=== PATIENT | female | born 1965 | race Caucasian/White ===

== ENCOUNTER → 2018-11-24 11:58 | Outpatient (CLI) | payer OTHER, SELFPAY ==
--- NOTE | 2018-11-24 | DI.RAD.S_ITS ---
PROCEDURE: XR FOOT LT 2V INDICATIONS: LATERAL FOOT PAIN TECHNIQUE: 2 views of the foot were acquired. COMPARISON: None. FINDINGS: Bones: No fractures or dislocations. Severe hallux valgus deformity of with prominent bunion. No suspicious bony lesions. Soft tissues: No tibiotalar joint effusion. Achilles tendon appears normal. IMPRESSION: Severe hallux valgus deformity. Dictated by: Lauren Whitmore MD, PhD on 11/24/2018 at 14:18 Approved by: Lauren Whitmore MD, PhD on 11/24/2018 at 14:19
== END ==
PROVIDERS: Family Provider Family Medicine; PCP Family Medicine; Visit Provider Internal Medicine
DX: M20.12 Hallux valgus (acquired), left foot (principal)
CPT/HCPCS: 73620

== ENCOUNTER 2022-01-05 07:43 | Emergency (ER) | payer OTHER, SELFPAY ==
[2022-01-05] VITALS (7 sets, daily range): BP systolic 133–135; BP diastolic 70–79; PULSE 58–69; RESP 13–20; TEMP 36.4; O2SAT 98–100; BMI 21.6
--- NOTE | 2022-01-05 07:54 | DI.RAD.S_ITS ---
PROCEDURE: XR CHEST 1V INDICATIONS: chest pain TECHNIQUE: One view of the chest was acquired. COMPARISON: None. FINDINGS: Surgical changes and devices: None. Lungs and pleura: Lungs are clear. No pleural effusions or pneumothorax. Mediastinum: Mediastinal contours appear normal. Heart size is normal. Bones and chest wall: No suspicious bony lesions. Overlying soft tissues appear unremarkable. IMPRESSION: No acute cardiopulmonary pathology. Dictated by: Tom Kevin M.D. on 01/05/2022 at 8:47 Approved by: Tom Kevin M.D. on 01/05/2022 at 8:47
[2022-01-05] MEDS: KETOROLAC 30 MG/ML VIAL 15 MG IV (08:03)
--- NOTE | 2022-01-05 08:04 | ED.CHESTPAIN ---
HPI - Chest Pain General Chief Complaint: Chest Pain Stated Complaint: heartburn/chest pain Time Seen by Provider: 01/05/22 07:54 Source: patient Mode of arrival: Ambulatory Limitations: no limitations Limitations: no limitations History of Present Illness HPI narrative: The patient complains of central sternal chest pain, present for 3 days. Pain waxes and wanes, but has not resolved. The pain does not radiate. She has no headache, no neck pain, no back pain or arm pain. She has occasional nonproductive cough. She has no dyspnea, no hemoptysis. She has no fever. She denies recent illness. She has no leg pain. She works out regularly, about 90 minutes 2 times daily. Workouts have been gone well without exacerbation of the pain. She has no intolerance to the activity. She can recall no injury that may have affected her chest. She denies GI symptoms. She has no chronic cardiac or respiratory illness. She is on no prescription medications. Related Data Home Medications Medication Instructions Recorded Confirmed multivitamin (Multiple Vitamins) 1 tab PO QDAY #0 tab 06/12/16 01/05/22 aspirin 81 mg tablet,delayed 81 mg PO DAILY 01/05/22 01/05/22 release cholecalciferol (vitamin D3) 75 75 mcg PO DAILY 01/05/22 01/05/22 mcg (3,000 unit) tablet Allergies Allergy/AdvReac Type Severity Reaction Status Date / Time No Known Drug Allergies Allergy Verified 01/05/22 07:52 Review of Systems Constitutional Constitutional: Denies body ache(s), Denies chills, Denies excessive sweating, Denies fatigue, Denies fever(s) and Denies headache(s) ENT Ears, Nose, Mouth, and Throat: Denies vertigo, Denies dizziness, Denies headache(s), Denies neck pain, Denies sinus pressure and Denies sore throat Cardiovascular Cardiovascular: Reports chest pain, Reports chest pain at rest, Denies syncope, Denies rapid heart rate, Denies pedal edema, Denies lightheadedness, Denies radiating jaw, neck or arm pain and Denies dyspnea Respiratory Respiratory: Reports as per HPI, Reports cough and Denies dyspnea Gastrointestinal Gastrointestinal: Denies abdominal pain and Denies nausea Comments: Normal appetite Genitourinary Genitourinary: Denies dysuria Musculoskeletal Musculoskeletal: Denies back pain, Denies arthralgias, Denies myalgias, Denies neck pain and Denies stiffness Integumentary/Breasts Skin/Breast: Denies lesions and Denies rash Neurologic Neurologic: Denies confusion, Denies vertigo, Denies dizziness, Denies syncope, Denies headache(s) and Denies memory loss Psychiatric Psychiatric: Denies confusion, Denies depression and Denies memory loss Endocrine Endocrine: Denies excessive sweating, Denies fatigue and Denies flushing Hematologic/Lymphatic On Anticoagulants: No Patient History Medical History (Updated 01/05/22 @ 09:27 by Temo Brown MD) No chronic diseases present Surgical History (Updated 01/05/22 @ 08:15 by Temo Brown MD) No significant past surgical history Social History Smoking Status: Never smoker Smoking Status: Never smoker alcohol intake frequency: a few times a week Substance Use Type: does not use Exam Initial Vital Signs Initial Vital Signs: Vital Signs Temperature 97.6 F 01/05/22 07:51 Pulse Rate 69 01/05/22 07:51 Respiratory Rate 19 01/05/22 07:51 Blood Pressure 135/79 01/05/22 07:51 Pulse Oximetry 100 01/05/22 07:51 Const General: cooperative, healthy appearing and anxious [facility] Head: normocephalic and atraumatic Throat: posterior oropharynx normal Eyes General: appearance normal, both eyes and all related structures Neck Neck: No lymphadenopathy and No JVD Chest Other: Reproducible sternal tenderness consistent with the patient's complaint of chest pain. Resp Auscultation: clear to auscultation bilaterally Cardio Rate: regular rate Rhythm: regular rhythm Heart Sounds: S1 normal, S2 normal, no click, no gallops and no murmurs GI Inspection: normal to inspection Palpation: No guarding, No mass and No tender Auscultation: normal bowel sounds Back/Spine/Pelvis Back: normal to inspection and No back tenderness Skin General: no rashes or lesions noted Neuro General: patient alert, patient awake, patient oriented x3 and no focal motor deficits Extrem General: normal to inspection, no pedal edema and no calf tenderness Psych Mental Status: mental status grossly normal Course Course Course Narrative: Her chest discomfort has improved significantly following Toradol. There is no suggestion of cardiovascular or pulmonary disease. She is advised use Advil for discomfort, slow down her workouts for the next few days. Orders Ordered: ED Orders 01/05/22 07:54 XR chest 1V Stat Complete Blood Count AUTO DIFF Stat Comprehensive Metabolic Panel Stat D Dimer Stat Lipase Stat Troponin & CK Cardiac Panel Stat EKG-12 Lead Stat Discontinued Medications Ketorolac Tromethamine (Ketorolac 30 Mg/Ml Vial) 15 mg IV NOW ONE Stop: 01/05/22 08:01 Ketorolac Tromethamine (Ketorolac 30 Mg/Ml Vial) 15 mg IV NOW ONE Stop: 01/05/22 07:56 Vital Signs Vital signs: Vital Signs - 8 hr 01/05/22 07:51 Temperature 97.6 F Pulse Rate 69 Respiratory Rate 19 Blood Pressure 135/79 Pulse Oximetry 100 MDM - Chest Pain Imaging Data Chest x-ray: Radiologist's Impression: Normal. ECG Data Attestation: I personally reviewed and interpreted this ECG as follows: (Normal sinus rhythm rate 66 beats per minute. Normal intervals. No ectopy. No acute ST T wave changes. Normal study.) Discharge Plan Departure Patient Disposition: Home Clinical Impression: Acute costochondritis Instructions: DI for Costochondritis Activity Restrictions/Additional Instructions: Your discomfort seems to be localized your chest wall. Your heart and lungs are functioning normally. Labs suggest mild dehydration, consider drinking more fluids. Advil 2 tablets every 6 hours for recurrent chest pain. Limit activities for the next several days, until current discomfort resolves. If you have worsening symptoms follow-up with your doctor or return here. Prescriptions: No Action multivitamin [Multiple Vitamins] 1 EACH tablet 1 tab PO QDAY Qty: 0 0RF aspirin 81 mg Tablet,Delayed Release (Dr/Ec) 81 mg PO DAILY 0RF cholecalciferol (vitamin D3) 75 mcg (3,000 unit) Tablet 75 mcg PO DAILY 0RF
[2022-01-05 08:10] LABS: Add Manual Diff / Slide Review NO; Basophils Absolute Auto 0 /uL (0-100); Eosinophils Absolute Auto 100 /uL (0-450); Eosinophils Percent Auto 1.1 % (2-4); Hematocrit 39.9 % (36-46); Hemoglobin 13.5 g/dL (12.0-16.0); Lymphocytes Absolute Auto 800 /uL (1100-4500); Lymphocytes Percent Auto 17.1 % (25-40); Mean Corpuscular HGB Conc 33.9 % (30-36); Mean Corpuscular Hemoglobin 30.9 PG (26-34); Mean Corpuscular Volume 91.2 fL (80-100); Monocytes Absolute Auto 300 /uL (0-900); Monocytes Percent Auto 6.8 % (3-14); Neutrophils Absolute Auto 3600 /uL (1500-7000); Platelet Count 205 X10^3/uL (150-400); Red Blood Cell Count 4.37 X10^6/uL (4.0-5.2); Red Cell Distribution Width 14.7 % (11.6-14.8); White Blood Cell Count 4.8 X10^3/uL (4.5-11.0)
[2022-01-05 08:18] LABS: D Dimer 203 ng/mL (<230)
[2022-01-05 08:20] LABS: Alanine Aminotransferase 33 IU/L (<35); Albumin 4.8 g/dL (3.5-5.0); Albumin Globulin Ratio 1.5 (1.0-2.8); Alkaline Phosphatase 90 U/L (38-126); Aspartate Aminotransferase 56 IU/L (14-36); BUN Creatinine Ratio 28.9 (6-22); Bilirubin Total 0.5 mg/dL (0.2-1.3); Blood Urea Nitrogen 22 mg/dL (7-17); Calcium 10.2 mg/dL (8.4-10.2); Carbon Dioxide 25 mmol/L (22-32); Chloride 106 mmol/L (98-107); Creatine Kinase 328 U/L (30-135); Estimated Glomerular Filt Rate > 60.0 mL/min (>60); Globulin 3.1 g/dL (1.7-4.1); Glucose 95 mg/dL (70-100); HEMOLYSIS < 15 (0-50); Lipase 122 U/L (23-300); Potassium 4.4 mmol/L (3.4-5.1); Sodium 139 mmol/L (137-145); Total Protein 7.9 g/dL (6.3-8.2)
[2022-01-05 08:35] LABS: Creatine Kinase MB 8.36 ng/mL (<2.37)
[2022-01-05 08:41] LABS: CKMB % Relative Index 2.5 % (1.5-5.0)
== END 2022-01-05 09:42 | disposition home or self-care (01) ==
PROVIDERS: Emergency Provider Emergency Medicine; Family Provider Family Medicine
DX: M94.0 Chondrocostal junction syndrome [Tietze] (principal)
CPT/HCPCS: 36415; 71045; 80053; 81003; 82550; 82553; 83690; 84484; 85025; 85379; 93005; 93010; 96374; 99284; J1885

== ENCOUNTER 2023-03-24 13:18 | Emergency (ER) | payer OTHER, SELFPAY ==
[2023-03-24 13:48] VITALS: BP 142/87; PULSE 61; RESP 16; TEMP 36.7; O2SAT 97; BMI 21.9
--- NOTE | 2023-03-24 13:54 | DI.RAD.S_ITS ---
PROCEDURE: XR CHEST 1V INDICATIONS: hit in chest with heavy object, sternum pain TECHNIQUE: One view of the chest was acquired. COMPARISON: None. FINDINGS: Surgical changes and devices: None. Lungs and pleura: Lungs are clear. No pleural effusions or pneumothorax. Mediastinum: Mediastinal contours appear normal. Heart size is normal. Bones and chest wall: No suspicious bony lesions. Overlying soft tissues appear unremarkable. IMPRESSION: No acute pulmonary process. Dictated by: Faiza Hayes M.D. on 03/24/2023 at 14:08 Approved by: Faiza Hayes M.D. on 03/24/2023 at 14:08
[2023-03-24 16:31] VITALS: BP 170/87; PULSE 58; RESP 16; O2SAT 99
[2023-03-24] MEDS: HYDROCODONE/ACET 5/325 PREPACK 1 BOTTLE MISC (18:01)
--- NOTE | 2023-03-24 18:06 | ED.CHESTPAIN ---
HPI - Chest Pain General Chief Complaint: Chest Pain Stated Complaint: injury t-14 breast bone, chest/back pain Time Seen by Provider: 03/24/23 17:37 History of Present Illness HPI narrative: This is a 57-year-old female who comes in with complaint of 2 weeks of pain in the right substernal chest. 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 The corner of the tray struck her in the chest when she accidentally ran into an industrial refrigerator. She had pain immediately afterwards she took about a week off. She never had bruising or skin changes but has had pain with movement, and deep inhalation. Patient states she lifts anywhere from a few oz 250 lb regularly at work. She took about a week off but continued to exercise and work out regularly. She states that she was lifting heavy back at work and had increasing pain again and for the last several days has been more persistent and radiates around. She states it continues to be worse with movement. She denies any shortness of breath. No lightheadedness, passing out. No nausea or vomiting. Patient denies any hemoptysis, no cough. The increasing shortness of breath. No other GI or urinary symptoms. No numbness, tingling or weakness. Patient has been taking [id number] medication for pain which was helpful until the last week. She denies any daily medications. No tobacco, occasional alcohol, no illicit. She works out regularly every day typically bikes 1-2 hours at a time and lifts weights. Related Data Home Medications Medication Instructions Recorded Confirmed multivitamin (Multiple Vitamins 1 tab PO QDAY #0 tabs 06/12/16 01/05/22 tablet) aspirin 81 mg tablet,delayed 81 mg PO DAILY 01/05/22 01/05/22 release cholecalciferol (vitamin D3) 75 75 mcg PO DAILY 01/05/22 01/05/22 mcg (3,000 unit) tablet Previous Rx's Medication Instructions Recorded tramadol 50 mg tablet 50 mg PO Q6H PRN pain #14 tabs 03/24/23 Allergies Allergy/AdvReac Type Severity Reaction Status Date / Time No Known Drug Allergies Allergy Verified 01/05/22 07:52 Review of Systems Review of Systems ROS Unobtainable: All systems reviewed & are unremarkable except as noted in HPI and below Patient History Medical History No chronic diseases present Surgical History No significant past surgical history Social History Smoking Status: Never smoker Smoking Status: Never smoker alcohol intake frequency: a few times a week Substance Use Type: does not use Exam Narrative Exam Narrative: GEN: Patient appears in mild distress. HEAD: No evidence of trauma, no raccoon/Frey sign. NECK: Nontender, painless range of motion, trachea midline EYES: PERRLA, EOMI ENT: External inspection normal, trachea is midline, TM's are normal no hemotypanum, airway is normal and with normal occlusion, No bony tenderness RESP: Chest is tender at the right sternal border and anterior rib 5 6. Patient has symmetric movement, no ecchymosis, breath sounds are normal no crackles, wheezes or rales, no tachypnea, no accessory muscle use. No contusions, swelling or other skin changes. No rash. CVS: Heart sounds are normal, no murmur noted, No JVD. ABG/GI: Nontender, soft, normal bowel sounds, no distention, no organomegaly. GENIT, RECTAL: Normal external inspection, normal rectal tone NEURO: Oriented AOx3, neuro is grossly intact, sensation and motor is normal all 4 extremities moving, cranial nerves II through XII are intact, GCS is 15 PSYCH: Normal mood and affect SKIN: Intact, warm and dry, no crepitus and without decubitus BACK: No CVA tenderness, no vertebral tenderness, no step-off's, no crepitus EXT: Atraumatic, normal color and temperature, normal range of motion of extremities Initial Vital Signs Initial Vital Signs: Vital Signs Temperature 98.0 F 03/24/23 13:48 Pulse Rate 61 03/24/23 13:48 Respiratory Rate 16 03/24/23 13:48 Blood Pressure 142/87 H 03/24/23 13:48 Pulse Oximetry 97 03/24/23 13:48 Oxygen Delivery Method Room Air 03/24/23 13:48 Course Orders Ordered: ED Orders 03/24/23 13:54 XR chest 1V Stat Discontinued Medications Hydrocodone Bitart/Acetaminophen (Hydrocodone/Acet 5/325 Prepack) 1 bottle MISC SEEINSTR ONE Stop: 03/24/23 17:49 Last Admin: 03/24/23 18:01 Dose: 1 bottle Documented By: CAREY Vital Signs Vital signs: Vital Signs - 8 hr 03/24/23 13:48 03/24/23 16:31 03/24/23 18:09 Temperature 98.0 F Pulse Rate 61 58 L 56 L Respiratory Rate 16 16 20 Blood Pressure 142/87 H 170/87 H 175/93 H Pulse Oximetry 97 99 99 Oxygen Delivery Method Room Air Room Air Room Air MDM - Chest Pain Imaging Data Chest x-ray: Radiologist's Impression: Close Chest X-Ray (Signed) Faiza Hayes - 03/24/23 Chest X-Ray (Signed) Tom Kevin - 01/05/22 Foot X-Ray (Signed) Lauren Whitmore - 11/24/18 [address] [address] XRay Report Signed Patient: Adriane Pope MR#: [id number] : 1965 Acct:[id number] Age/Sex: 57 / F Date of Service: 03/24/23 Loc: ED Accession Number: [id number] ?? Procedure: XR chest 1V Ordering Provider: Mery Puentes D.O. PROCEDURE:? XR CHEST 1V ? INDICATIONS:? hit in chest with heavy object, sternum pain ? TECHNIQUE:? One view of the chest was acquired.? ? COMPARISON:? None. ? FINDINGS:? ? Surgical changes and devices:? None.? ? Lungs and pleura:? Lungs are clear.? No pleural effusions or pneumothorax.? ? Mediastinum:? Mediastinal contours appear normal.? Heart size is normal.? ? Bones and chest wall:? No suspicious bony lesions.? Overlying soft tissues appear unremarkable.? ? IMPRESSION:? No acute pulmonary process. ? ? Dictated by: Faiza Hayes M.D. on 03/24/2023 at 14:08 ? ? Approved by: Faiza Hayes M.D. on 03/24/2023 at 14:08?? MDM Narrative Medical decision making narrative: This is a 57-year-old female who presents with complaint of traumatic chest pain anterior chest patient was caring a large baking tray struck in the anterior chest with the corner when she ran into a refrigerator. Patient's pain was improving over a week but then she was lifting some heavy things at work including up to 50 lb bags. And pain once again increased. No obvious fracture, patient's pain is actually little bit more to the left lateral sternal border. Patient does not have any contusion, bruising or other high-risk factors patient is not felt to require CT imaging today but discussed she could have rib fracture less likely sternal fracture. Plan for decreased activity, no heavy lifting until symptoms have improved and follow-up. Discharge Plan Departure Patient Disposition: Home Clinical Impression: Anterior chest wall pain Instructions: DI for Chest Pain Activity Restrictions/Additional Instructions: Please follow-up if your symptoms are not continuing to improve over the next 1-2 weeks. You can take Tylenol up to a 1000 mg every hours and/or ibuprofen up to 600 mg every 6 hours. You may take tramadol 1-2 tablets every 6 hours as needed for pain in addition This medication can make you sleepy do not drive, perform hazardous activities or make any major decisions while taking it. This medication will make you constipated please take a stool softener once to twice daily until stools are soft and regular. Prescription sent to [facility] in [place]. Please return for rapidly worsening pain, increasing or worsening chest pain, shortness of breath, lightheadedness or passing out, persistent vomiting, new swelling of extremities other new or concerning changes. Prescriptions: New tramadol 50 mg tablet 50 mg PO Q6H PRN (Reason: pain) Qty: 14 0RF No Action multivitamin [Multiple Vitamins] 1 EACH tablet 1 tab PO QDAY Qty: 0 aspirin 81 mg Tablet,Delayed Release (Dr/Ec) 81 mg PO DAILY cholecalciferol (vitamin D3) 75 mcg (3,000 unit) Tablet 75 mcg PO DAILY Stand Alone Forms: Patient Portal/API, Work Release Note
[2023-03-24 18:09] VITALS: BP 175/93; PULSE 56; RESP 20; O2SAT 99
--- NOTE | 2023-03-24 18:24 | PC.NURSE ---
Educated patient on incentive spirometer. Patient gave return demonstration with good effort.
== END 2023-03-24 18:25 | disposition home or self-care (01) ==
PROVIDERS: Emergency Provider Emergency Medicine; Family Provider Family Medicine
DX: R07.89 Other chest pain (principal)
CPT/HCPCS: 71045; 99283